=== PATIENT | male | born 2000 | race Caucasian/White ===

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

== ENCOUNTER 2021-02-06 15:29 | Emergency (ER) | payer OTHER ==
[~2021-02-06] VITALS: Ht 185.4 cm; Wt 74.8 kg
[2021-02-06] MEDS ORDERED: LIDOCAINE 1% Multi-Dose 20 ML VIAL. IJ ONE (15:45)
--- NOTE | 2021-02-06 16:13 | PHYS DOC ---
Past History Past Medical History: Asthma, Other Additional Past Medical Histor: SEASONAL ALLERGIES Past Surgical History: Tonsillectomy, Other Additional Past Surgical Histo: Adenoidectomy Smoking: Non-smoker Alcohol Use: None Drug Use: None General Adult EDM: Chief Complaint: LACERATION/AVULSION HPI: HPI: Patient is a 20-year-old male who presents to the ER for a laceration to his right third finger. Patient reports that he cut his finger just prior to arrival on a metal wire. He states that his tetanus is up-to-date. Patient denies any decreased range of motion or decreased sensation. Review of Systems: Review of Systems: 14 body systems of the review of systems have been reviewed. See HPI for pertinent positive and negative responses, otherwise all other systems are negative, nonpertinent or noncontributory Current Medications: Current Meds: Current Medications Medications (Trade) Dose Ordered Sig/Magalys Start Time Stop Time Status Last Admin Dose Admin Lidocaine HCl 20 ml 1X ONCE 02/06/21 15:45 02/06/21 15:48 DC Allergies: Allergies: Allergies Coded Allergies Type Severity Reaction Last Updated Verified No Known Drug Allergies 02/23/20 No Physical Exam: PE: Constitutional: Well developed, well nourished, no acute distress, non-toxic appearance. [] HENT: Normocephalic, atraumatic Eyes: PERRL, EOMI, conjunctiva normal, no discharge. [] Neck: Normal range of motion, no stridor Cardiovascular normal peripheral perfusion Lungs & Thorax: Normal work of breathing, no tachypnea Abdomen: Soft Skin: Warm, dry, no erythema, no rash, 1 cm laceration noted to the IV dorsal aspect of patient's right third finger across PIP joint, range of motion intact, no tendon involvement, no visible foreign body neuro intact. Back: Normal range of motion Extremities: No tenderness, no cyanosis, no clubbing, ROM intact, no edema. [] Neurologic: Alert and oriented X 3, normal motor function, normal sensory function, no focal deficits noted. [] Psychologic: Affect normal, judgement normal, mood normal. [] Current Patient Data: Vital Signs: Vital Signs Date Time Temp Pulse Resp B/P (MAP) Pulse Ox O2 Delivery O2 Flow Rate FiO2 02/06/21 15:33 98.6 108 16 140/87 (104) 98 Room Air EKG: EKG: [] Radiology/Procedures: Radiology/Procedures: [] Heart Score: C/O Chest Pain: No Risk Factors: Risk Factors: DM, Current or recent (<one month) smoker, HTN, HLP, family history of CAD, obesity. Risk Scores: Score 0 - 3: 2.5% MACE over next 6 weeks - Discharge Home Score 4 - 6: 20.3% MACE over next 6 weeks - Admit for Clinical Observation Score 7 - 10: 72.7% MACE over next 6 weeks - Early Invasive Strategies Course & Med Decision Making: Course & Med Decision Making Pertinent Labs and Imaging studies reviewed. (See chart for details) [] Patient is a 20-year-old male being seen in the ER for a laceration to his right third finger. Laceration was cleansed with saline and chlorhexidine. Wound was closed with sutures. Neurovascularly intact pre and post suture placement, no visible foreign bodies, no tendon involvement, full range of motion of finger. Patient's tetanus was up-to-date. Dressing placed to finger. Aluminum finger splint placed patient educated on laceration care and suture removal. Patient vies follow-up with primary care provider return to the ER in 7 to 10 days to have sutures removed. There is also advised to monitor for signs of infection such as redness, warmth, swelling or drainage. I discussed with patient all findings and diagnostic testing as well as the need to follow- up with PCP for further evaluation and treatment or return to the ER if any new or worsening symptoms. Strict return precautions were also discussed at length. Patient voiced understanding and agreement with the plan. Patient is hemodynamically stable at the time of disposition. Cipriano Disclaimer: Cipriano Disclaimer: This electronic medical record was generated, in whole or in part, using a voice recognition dictation system. Laceration Repair Lac Repair Time:0 Confirmed: Patient, procedure, site, and site correct Consent: Patient has given verbal consent Laceration location: Dorsal aspect right third finger proximal to PIP joint Shape: C SHAPED Depth:NO TENDON INVOLVEMENT Details: Clean with no foreign material Neurovascular, tendon exam: Intact Anesthesia: 1% lidocaine Preparation: Sterile field established Irrigation: Wound irrigated with chlorhexidine and sterile saline Debridement: Skin closure: Simple interrupted sutures placed Size of suture: 5-0 Ethilon Number of sutures:3 Complexity: Single layer Post procedure exam: Circulation, motor, sensory exam intact, bleeding controlled. Complications: None Patient tolerated: Well Performed by: self Total time:20 MIN Departure Departure: Impression: Primary Impression: Laceration Disposition: 01 HOME / SELF CARE / HOMELESS Condition: GOOD Referrals: SHANTA ROSALES MD (PCP) Patient Instructions: Laceration Care, Adult Additional Instructions: You were seen in the ER today for a laceration. This laceration was cleansed and repaired with sutures in the ER. Please do not submerge your hand in any water for 48 hours. You can keep your laceration clean and dry. You can apply Polysporin or bacitracin ointment and keep a dressing in place. Monitor for signs of infection which include redness, warmth, swelling or drainage. You can take Tylenol/ibuprofen for any pain. Follow-up with your primary care provider or return to the ER in approximately 7 to 10 days to have your sutures removed. Please return to the ER if you develop any of the signs of infection, decreased range of motion or decreased sensation to your finger. EMERGENCY DEPARTMENT GENERAL DISCHARGE INSTRUCTIONS Thank you for coming to [facility] (ED) today and trusting us with you care. We trust that you had a positivie experience in our Emergency Department. If you wish to speak to the department management, you may call the director at [phone]. YOUR FOLLOW UP INSTRUCTIONS ARE FOLLOWS: 1. Do you have a private Doctor? If you do not have a private doctor, please ask for a resource list of physicians or clinics that may be able to assist you with follow up care. 2. The Emergency Physician has interpreted your x-rays. The X-Ray specialist will also review them. If there is a change in the findings, you will be notified in 48 hours when at all possible. 3. A lab test or culture has been done, your results will be reviewed and you will be notified if you need a change in treatment. ADDITIONAL INSTRUCTIONS AND INFORMATION: 1. Your care today has been supervised by a physician who is specially trained in emergency care. Many problems require more than one evaluation for a complete diagnosis and treatment. We recommend that you schedule your follow up appointment as recommended to ensure complete treatment of you illness or injury. If you are unable to obtain follow up care and continue to have a problem, or if your condition worsens, we recommend that you return to the ED. 2. We are not able to safely determine your condition over the phone nor are we able to give sound medical advice over the phone. For these safety reasons, if you call for medical advice we will ask you to come to the ED for further evaluation. 3. If you have any questions regarding these discharge instructions please call the ED at [phone]. SAFETY INFORMATION: In the interest of safety, wellness, and injury prevention; we encourage you to wear your sealbelt, if you smoke; quite smoking, and we encourage family to use a protective helmet for bicycling and other sporting events that present an increased risk for head injury. IF YOUR SYMPTOMS WORSEN OR NEW SYMPTOMS DEVELOP, OR YOU HAVE CONCERNS ABOUT YOUR CONDITION; OR IF YOUR CONDITION WORSENS WHILE YOU ARE WAITING FOR YOUR FOLLOW UP APPOINTMENT; EITHER CONTACT YOUR PRIMARY CARE DOCTOR, THE PHYSICIAN WHOSE NAME AND NUMBER YOU WERE GIVEN, OR RETURN TO THE ED IMMEDIATELY. DYLON MORALES APRN Feb 06, 2021 16:13
[2021-02-06 16:52] VITALS: BP 112/83
== END 2021-02-06 16:54 | disposition home or self-care (01) ==
LOC: ER 15:29
DX: S61.212A Laceration without foreign body of right middle finger without damage to nail, initial encounter (principal); J45.909 Unspecified asthma, uncomplicated; W26.8XXA Contact with other sharp object(s), not elsewhere classified, initial encounter; Y93.89 Activity, other specified; Y92.89 Other specified places as the place of occurrence of the external cause; Y99.8 Other external cause status
CPT/HCPCS: 12001; 99282; 99284

== ENCOUNTER 2021-04-30 11:26 | Emergency (ER) | payer OTHER ==
[~2021-04-30] VITALS: Ht 180.3 cm; Wt 72.7 kg
[2021-04-30 11:43] VITALS: BP 147/80
[2021-04-30] MEDS ORDERED: SULF1TAB24 PO (11:46)
--- NOTE | 2021-04-30 11:50 | PHYS DOC ---
Past History Past Medical History: Asthma, Other Additional Past Medical Histor: SEASONAL ALLERGIES (DYLON MORALES APRN) Past Surgical History: Tonsillectomy, Other Additional Past Surgical Histo: Adenoidectomy (DYLON MORALES APRN) Smoking: Non-smoker Alcohol Use: None Drug Use: None (DLYON MORALES APRN) General Adult EDM: Chief Complaint: ABSCESS HPI: HPI: Patient is a 20-year-old male who presents to the emergency department for an abscess to his gluteal cleft. Patient reports the abscess started 1 week ago and it was bigger and painful but has decreased in size and is no longer painful. Patient states that his tetanus is up-to-date. Patient reports a history of this abscess and he had it drained in 2019. Patient denies any fevers, nausea, vomiting. (DYLON MORALES APRN) Review of Systems: Review of Systems: Constitutional: See HPI GI: See HPI Musculoskeletal: See HPI Integument: See HPI (DYLON MORALES APRN) Allergies: Allergies: Allergies Coded Allergies Type Severity Reaction Last Updated Verified No Known Drug Allergies 02/23/20 No (DYLON MORALES APRN) Physical Exam: PE: Constitutional: Well developed, well nourished, no acute distress, non-toxic appearance. [] HENT: Normocephalic, atraumatic Eyes: PERRL, EOMI, conjunctiva normal, no discharge. [] Neck: Normal range of motion, no tenderness, supple, no stridor. [] Cardiovascular: Normal peripheral perfusion Lungs & Thorax: Normal work of breathing, no tachypnea Abdomen: Soft and flat Skin: Warm, dry, no erythema, no rash, patient has pea-sized round hardened area to right gluteal cleft, there is no area of fluctuance, no redness/warmth/drainage/streaking surrounding area Back: Normal range of motion Extremities: No tenderness, no cyanosis, no clubbing, ROM intact, no edema. [] Neurologic: Alert and oriented X 3, normal motor function, normal sensory function, no focal deficits noted. [] Psychologic: Affect normal, judgement normal, mood normal. [] (DYLON MORALES APRN) EKG: EKG: [] (DYLON MORALES APRN) Radiology/Procedures: Radiology/Procedures: [] (DYLON MORALES APRN) Heart Score: C/O Chest Pain: N/A Risk Factors: Risk Factors: DM, Current or recent (<one month) smoker, HTN, HLP, family history of CAD, obesity. Risk Scores: Score 0 - 3: 2.5% MACE over next 6 weeks - Discharge Home Score 4 - 6: 20.3% MACE over next 6 weeks - Admit for Clinical Observation Score 7 - 10: 72.7% MACE over next 6 weeks - Early Invasive Strategies (DYLON MORALES APRN) Course & Med Decision Making: Course & Med Decision Making Pertinent Labs and Imaging studies reviewed. (See chart for details) Patient presents to the emergency department for an abscess to his right gluteal cleft that started 1 week ago. There is a pea-sized hardened area without any fluctuance. Unable to drain at this time. Patient be discharged home with an antibiotic. Patient advised to take Tylenol and/or ibuprofen for his pain and monitor his abscess for any changing in size or any surrounding signs of infection like redness, warmth, swelling or drainage. I discussed with patient all findings and diagnostic testing as well as the need to follow-up with PCP for further evaluation and treatment or return to the ER if any new or worsening symptoms. Strict return precautions were also discussed at length. Patient voiced understanding and agreement with the plan. Patient is hemodynamically stable at the time of disposition. (DYLON MORALES APRN) Dragon Disclaimer: Dragon Disclaimer: This electronic medical record was generated, in whole or in part, using a voice recognition dictation system. (DYLON MORALES APRN) Attending Co-Sign The patient was seen and interviewed as well as examined at the bedside. The chart was reviewed. The case was discussed. Agree with the plan of care. (LELE JIANG DO) Departure Departure: Impression: Primary Impression: Abscess Disposition: 01 HOME / SELF CARE / HOMELESS Condition: GOOD Referrals: SHANTA ROSALES MD (PCP) Patient Instructions: Abscess Additional Instructions: You were seen in the emergency department for an abscess to your gluteal cleft. As we discussed, this abscess is very small and very hard, unable to drain at this time. You are being discharged home with an antibiotic please make sure the start and finish it completely. For any pain you can take Tylenol and/ibu profen. Please monitor for any increase in size or fluctuance, or any other surrounding signs of infection like redness, warmth, drainage, streaking. Is follow-up with your primary care provider tomorrow regarding your ER visit. Please return to the emergency department if you develop noticed increased size of your abscess, fevers, nausea, vomiting. Scripts Sulfamethoxazole/Trimethoprim (BACTRIM DS TABLET) 1 Each Tablet 1 TAB PO BID for abscess for 7 Days, #14 TAB 0 Refills Prov: DYLON MORALES APRN 04/30/21 DYLON MORALES APRN Apr 30, 2021 11:50 LELE JIANG DO Apr 30, 2021 16:15
== END 2021-04-30 11:58 | disposition home or self-care (01) ==
LOC: ER 11:26
DX: L02.31 Cutaneous abscess of buttock (principal); J45.909 Unspecified asthma, uncomplicated
CPT/HCPCS: 99283